=== PATIENT | female | born 1980 | race Caucasian/White ===

== ENCOUNTER → 2020-04-12 10:21 | Outpatient (CLI) | payer OTHER, SELFPAY ==
--- NOTE | ~2020-04-12 | XR_ITS ---
EXAMINATION: XR chest 2V DATE: 04/12/2020 10:35 INDICATION: Dyspnea, unspecified. TECHNIQUE: Frontal and lateral views of the chest were obtained. COMPARISON: None. FINDINGS: The chest demonstrates clear lungs without pneumonia, pleural effusion, or pneumothorax. Th e heart size is normal. IMPRESSION: 1. No acute cardiopulmonary disease. Reviewed, dictated and finalized at location B.
== END ==
PROVIDERS: PCP Family Medicine; Visit Provider Family Medicine
DX: R06.00 Dyspnea, unspecified (principal)
CPT/HCPCS: 71046

== ENCOUNTER 2020-04-21 10:38 | Outpatient (CLI) | payer OTHER, SELFPAY ==
--- NOTE | ~2020-04-21 | US_ITS ---
EXAMINATION: US pelvic complete w TV DATE: 04/21/2020 11:34 INDICATION: Other specified abnormal uterine and vaginal bleeding. TECHNIQUE: Multiple transabdominal and endovaginal sonographic images of the pelvis were obtained. COMPARISON: None. FINDINGS: The uterus measures 8.4 x 3.7 x 4.8 cm. The endometrial complex measures 7 mm. The right ov sade measures 2.6 x 2.1 x 2.6 cm. The left ovary measures 2.6 x 2.1 x 2.2 cm. There is normal vascular flow in the ovaries. There is no free fluid in the pelvis. IMPRESSION: 1. No sonographic correlate for the patient's symptoms. Reviewed, dictated and finalized at location A.
== END 2020-04-21 10:39 | disposition home or self-care (01) ==
LOC: ANHIMG 10:42
PROVIDERS: PCP Family Medicine; Visit Provider Family Medicine
DX: N93.8 Other specified abnormal uterine and vaginal bleeding (principal)
CPT/HCPCS: 76830; 76856

== ENCOUNTER 2022-01-29 11:26 | Outpatient (CLI) | payer BC, OTHER, SELFPAY ==
--- NOTE | ~2022-01-29 | MM_ITS ---
MM post biopsy invasive LT DATE: 01/29/2022 14:42 INDICATION: Post ultrasound-guided biopsy mammogram TECHNIQUE: ML and CC views of left breast following ultrasound-guided biopsy of 9:00 lesion COMPARISON: 01/29/2022 olq-freocqukff-lciwnx-biopsy diagnostic left mammogram images FINDINGS: A ribbon biopsy marker is present in the lower mid left breast from prior left breast biops y, present on the diagnostic mammogram performed prior to this ultrasound-guided biopsy. The biopsy marker did not successfully deploy at the 9:00 biopsy site today. IMPRESSION: Biopsy marker did not successfully deploy Reviewed, dictated and finalized at Location A. Reviewed, dictated and finalized at location A.
--- NOTE | ~2022-01-29 | US_ITS ---
EXAMINATION: US GUIDED NEEDLE BIOPSY DATE: 01/29/2022 15:35 CDT INDICATION: Irregular left breast inner 9:00 sonographic mass TECHNIQUE AND FINDINGS: The risks and potential benefits of the procedure were discussed with the patient, and written inform ed consent was obtained. Timeout procedure was performed. After sterile preparation of the left breas t, 1% lidocaine was utilized for local anesthesia. A 14G spring-loaded biopsy gun needle was advanced to the edge of the region of interest from an infe rior superior/inferior/medial/lateral/superolateral/superomedial/inferolateral/inferomedial approach utilizing sonographic guidance. A total of 2 tissue core samples were obtained through the lesion. T he lesion was subsequently no longer sonographically evident. An Inrad tissue marker clip was then pl aced at the biopsy site. Hemostasis was achieved. A sterile bandage was applied. The patient tolerated procedure well and there was no evidence of immediate complication. The patien t was given verbal instructions prior to departing from the department. A two view mammogram was perf ormed to document tissue marker clip placement. The tissue samples were submitted to surgical patholo gy for histologic analysis. IMPRESSION: 1. Successful ultrasound guided biopsy of inner left 9:00 breast mass with biopsy marker placement. Please refer to pathology report for histologic analysis. Reviewed, dictated and finalized at Location A. Reviewed, dictated and finalized at location A. IMPRESSION: 1. Successful ultrasound guided biopsy of inner left 9:00 breast mass with bio psy marker placement. Please refer to pathology report for histologic analysis.
--- NOTE | ~2022-01-29 | MMUS_ITS ---
EXAMINATION: MM diagnostic lamin BI w fina, US breast BI complete HISTORY: Lateral left breast lump TECHNIQUE: Bilateral full field and spot 3-D tomosynthesis images were performed and synthetic 2-D im ages were generated. CAD analysis was submitted and interpreted. High resolution bilateral complete b reast ultrasound including all 4 quadrants and subareolar areas was performed. COMPARISON: None BREAST PARENCHYMAL COMPOSITION: The breasts are heterogeneously dense, which may obscure small masses . FINDINGS: MAMMOGRAPHIC FINDINGS: Possible bilateral breast masses, including: Approximate 1.8 cm partially obscured mass is noted in the outer mid left breast. This corresponds to the area of clinical complaint of lateral breast lump. Possible 1 cm mass at mid to posterior depth in the upper mid right breast. The heterogeneously dense stroma may obscure additional masses. Bilateral complete breast ultrasound examination was performed. No architectural distortion, malignant calcification, skin thickening or retraction of either breast is evident. ULTRASOUND: Right breast: 12:00 2 cm from nipple: 9.7 x 5.6 x 12.1 mm sonolucency with through transmission posterior enhanceme nt consistent with simple cyst 7:00 2 cm from nipple: 5.2 x 7.4 x 5.6 mm antiparallel circumscribed sonolucency with through transmi ssion posterior enhancement, most consistent with cyst 9:00 6 cm from nipple: 8.5 x 6.3 x 11.1 mm bilobed simple cyst Left breast: 12:00 2 cm from nipple: 8.1 x 5.4 x 6.8 mm cyst 2:00 8 cm from nipple at area of clinical complaint of breast lump: Lobular septated 18.2 x 14.8 x 16 .5 mm cyst with through transmission posterior enhancement 9:00 2 cm from nipple: Irregular hypoechoic 8.1 x 4.9 x 4.1 mm mass. Due to the irregular margins, ul trasound-guided aspiration attempt and if necessary biopsy is recommended. IMPRESSION: 1. Irregular 8.1 x 4.9 x 4.1 mm hypoechoic lesion at left breast 9:00 2 cm from nipple 2. Attempted ultrasound-guided aspiration is recommended, with biopsy if necessary at left breast 9:0 0 lesion BI-RADS category 4, suspicious findings. Reviewed, dictated and finalized at location A. IMPRESSION: 1. Irregular 8.1 x 4.9 x 4.1 mm hypoechoic lesion at left breast 9:00 2 cm from nipple 2. Attempted ultrasound-guided aspiration is recommended, with biopsy if necess sade at left breast 9:00 lesion BI-RADS category 4, suspicious findings.
== END 2022-01-29 11:27 | disposition home or self-care (01) ==
PROVIDERS: PCP Family Medicine; Visit Provider Obstetrics & Gynecology
DX: N60.12 Diffuse cystic mastopathy of left breast (principal); R92.8 Other abnormal and inconclusive findings on diagnostic imaging of breast
CPT/HCPCS: 19083; 76641; 77062; 77066; 88305; A4648; G0279

== ENCOUNTER 2025-03-15 01:03 | Day surgery (SDC) | payer OTHER, SELFPAY ==
[2025-03-03 12:58] VITALS: BMI 24.0
--- NOTE | 2025-03-03 12:59 | PC.NURSE ---
Report to the Outpatient Waiting Room, entrance under the green pavilion located off [facility], at time _0700_ on date _[id number]_. Planned Procedure Time: _0900_.? Time changes happen often and if your time is changed the preop area will call you the afternoon before. - You and your visitor will be asked to self-screen and do not enter if you have any COVID symptoms. Please call surgeon if you need to reschedule. - A mask is optional within the hospital at this time. Patients may have clear liquids (water, carbonated beverages, clear teas, apple juice) until 3 hours prior to surgery with a maximum of 20 ounces. - No food from midnight until time of surgery and no smoking, or chewing tobacco (or any form of nicotine). No chewing gum, candy or mints. Take only the following medications with a SIP of water on the morning of surgery: ___None____ DO NOT STOP ANY OF YOUR OTHER PRESCRIPTION MEDICATIONS PRIOR TO SURGERY EXCEPT THE FOLLOWING Hold all vitamins and supplements for 3 days per anesthesiologist. Medications to discontinue per physician Date to take last dose Please no make-up, nail thai, hairspray, perfume, deodorant, or body powder the day of surgery.? No jewelry (including any body piercings) or valuables the day of surgery, leave them at home.? Please take a shower or bath the night before, or the morning of, surgery with an antibacterial soap.? Wear comfortable, loose fitting clothing.? - Jewelry must be removed prior to entering the operating room.? Rings and piercings that are not removed may be cut off. - The hospital will not accept responsibility for valuables.? - Please leave all valuables, including medications, at home the day of surgery. If you are going home after surgery, a licensed ems driver must drive you home.? - NO public transportation without another adult if you receive anesthesia. - We recommend that an adult stay with you for 24 hours following discharge. - We also recommend that you do not drive, make important decision, drink alcoholic beverages, or take any drugs that were not prescribed by your health care provider for at least 24 hours after your discharge time. Follow any additional instructions given to you from your surgeon. Telephone instructions given to __Tommi___and asked if any additional questions and then verbalized understanding. Patient advised to call surgeon office or pre surgery nurse liaison [phone] if any additional questions.
[2025-03-15] VITALS (8 sets, daily range): BP systolic 90–112; BP diastolic 46–55; PULSE 66–80; RESP 14–18; TEMP 36.5–36.6; O2SAT 94–100
--- OUTSIDE RECORDS SUMMARY | 2025-03-15 01:06 | XMS_ITS | Clinical Summary ---
Author Organization [address] lt Address [address] [place] [address] Care Team Providers Care Relief Captain Name Role Phone Pretty Ulloa NP Primary Care Provider [phone] Allergies Active Allergy Reactions Criticality Noted Date Comments Penicillins Other (See comments) Low 10/27/2018 Vaginal yeast infection Medications buPROPion XL (WELLBUTRIN XL) 150 mg 24 hr tabletIndicatio ns:Hot flashes due to menopause,Overw eight with body mass index (BMI) of 27 to 27.9 in adult Take 1 tablet (150 mg total) by mouth every morning 60 tablet 11/18/2023 Active Active Problems Problem Noted Date Diagnosed Date Hot flashes due to menopause 11/17/2023 Assessment & Plan (11/17/2023 11:42 AM CDT): Believes she is going through menopause Has been having hot flashes at night Discussed Wellbutrin to help with mood, weight and hot flashes Patient will let us know if she would like to proceed Elevated CA-125 11/17/2023 Assessment & Plan (11/17/2023 11:41 AM CDT): Previously elevated CA 125 Has had breast biopsy x2 Last pelvic US normal Repeat lab Overweight with body mass in dex (BMI) of 27 to 27.9 in adult 11/17/2023 Assessment & Plan (11/17/2023 11:43 AM CDT): Has been struggling to lose weight; works out 3-5 days/week; high protein diet Would like to lose another 15 pounds Labs ordered Encounters Date Type Department Care Team Description 02/16/2025 1:32 PM CDT - 02/16/2025 11:59 PM CDT Hospital Encounter [facility] [address] [place] [id number] Screening mammogram, encounter for Discharge Disposition: Discharge to home or self care from Last 3 Months Immunizations Immunization Administration Dates Next Due Influenza, Unspecified 07/03/2023(Deferr ed: Patient Refused),06/01/2022(Deferred: Patient Refused) Surgical History Surgery Date Site/Laterality Comments TONSILLECTOMY 09/01/1985 - 08/31/1986 Family History Relation Name Status Comments Mother Social History Tobacco Use Types Packs/Day Years Used Date Smoking Tobacco: Never Smokeless Tobacco: Never Tobacco Cessation:Counseling Given: Not Answered AUDIT-C Answer Date Recorded Q1: How often do you have a drink containing alc ohol? Monthly or less 11/17/2023 Q2: How many drinks containi ng alcohol do you have on a typical day when you are drinking? 1 or 2 11/17/2023 Q3: How often do you have si x or more drinks on one occasion? 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8 kg (156 lb) 02/16/2025 1:40 PM CDT Height 160 cm (5' 3) 02/16/2025 1:40 PM CDT Body Mass Index 27.63 02/16/2025 1:40 PM CDT Plan of Treatment Health Maintenance Due Date Last Done Comments Cervical Cancer Screening 1980 Hepatitis C Screening 1980 DTaP/Tdap/Td Vaccine (1 - Tdap) 1991 Hepatitis B Screening 1998 Regular Well Visit/Exam 18-64 1998 Depression Screening 11/16/2024 11/17/2023 Influenza Vaccine (#1) 2025 Breast Cancer Screening-Mammogram 02/16/2026 025 HPV Vaccines Aged Out No longer eligi ble based on patient's age to complete this topic Pneumococcal vaccine <65 Aged Out No longer eligible based on patient's age to complete this topic Varicella Vaccines Discontinued Procedures Procedure Name Priority Date/Time Associated Diagnosis Comments SCREENING MAMMOGRAM BILATERAL W SINGH Schedule Routine, Read Routine (OP Routine) 02/16/2025 1:48 PM CDT Screening mammogram, encounter for from Last 3 Months Results * Screening Mammogram Bilateral W Singh (02/16/2025 1:48 PM CDT) Anatomical Region Laterality Modality Breast Bilateral Mammography Impressions 02/18/2025 11:11 AM CDT Bilateral No evidence of malignancy in either breast. OVERALL BI-RADS FINAL ASSESSMENT: 2 - Benign RECOMMENDATION: Recommend bilateral annual screening mammography. Narrative 02/18/2025 11:11 AM CDT EXAMINATION: Screening Mammogram Bilateral W Singh: 02/16/2025 COMPARISON: Relevant prior outside studies available at the time of interpretation were reviewed. TECHNIQUE: Mammography was performed with 2D and digital breast tomosynthesis (DBT) images. CAD was utilized. BREAST PARENCHYMAL COMPOSITION: The breasts are heterogeneously dense, which may obscure small masses. FINDINGS: There are multiple similar appearing round and oval circumscribed masses in both breasts. These have no suspiciously changed and are considered to be benign based on their morphology, multiplicity, and bilaterality. Some of these masses were characterized as benign cysts on prior outside ultrasound. There is a left breast biopsy marker clip. There is no definite new suspicious finding in either breast on mammogram. us Self Screening Mammogram IMG MAMMO PROCEDURES Fi nal Result from Last 3 Months Insurance ACCESS [facility] [place] HMO Care Teams Relief Captain Relationship Specialty Start Date End Date Pretty Ulloa NP PCP - General Family Medicine 11/17/23
--- OUTSIDE RECORDS SUMMARY | 2025-03-15 01:06 | XMS_ITS | Referral Summary ---
Author Organization [facility] [place] [address] lt Address [address] [place] [address] Care Team Providers Care Stereoptic Projection Topographer Name Role Phone Pretty Ulloa NP Primary Care Provider [phone] Encounters Date Type Department Care Team Description 02/16/2025 1:32 PM CDT - 02/16/2025 11:59 PM CDT Hospital Encounter [facility] [address] [place] [address] Screening mammogram, encounter for Discharge Disposition: Discharge to home or self care from Last 3 Months Allergies Active Allergy Reactions Criticality Noted Date [...] to lose another 15 pounds Labs ordered Immunizations Immunization Administration Dates Next Due Influenza, Unspecified 07/03/2023(Deferr ed: Patient Refused),06/01/2022(Deferred: Patient Refused) Social History Tobacco Use Types Packs/Day Years [...] on file Legal Sex Female 5:57 PM [employer] Gender Identity Female 02/15/2025 1:48 PM CDT Sexual Orientation Straight 02/15/2025 1: 48 PM CDT Last Filed Vital Signs Vital Sign Reading [...] 02/16/2025 1:40 PM CDT Plan of Treatment Not on file Procedures Procedure Name Priority Date/Time Associated Diagnosis [...] nal Result from Last 3 Months Insurance [employer] [facility]ESS [facility] HMO Care Teams Stereoptic Projection Topographer Relationship Specialty Start Date End Date Pretty Ulloa NP PCP - General Family Medicine 11/17/23
--- OUTSIDE RECORDS SUMMARY | 2025-03-15 01:06 | XMS_ITS | Data Portability ---
Author Organization [facility] Address [address] [place] [address] Assessment Encounter Date Assessment Date Assessment LastModified by Organization Details LastModified Time 10/26/2024 10/26/2024 I spent 15 minutes of iagw-jb-adur counselling and care coordination time with the patient. This includes reviewing medical records (medical, surgical, family and social history); updating medication and allergy information in the electronic health record; and ordering labs, medications, and education materials to continue patient care. Not available 10/26/2024 18:11:11 11/25/2024 11/25/2024 I spent 15 minutes of vgmi-qr-ojla counselling and care coordination time with the patient. This includes reviewing medical records (medical, surgical, family and social history); updating medication and allergy information in the electronic health record; and ordering labs, medications, and education materials to continue patient care. [email or web address] Not available 11/25/2024 15:45:57 12/22/2024 12/22/2024 I spent 15 minutes of rxbn-rv-qgqi counselling and care coordination time with the patient. This includes reviewing medical records (medical, surgical, family and social history); updating medication and allergy information in the electronic health record; and ordering labs, medications, and education materials to continue patient care. [email or web address] Not available 12/22/2024 15:21:47 01/11/2025 01/11/2025 I spent 15 minutes of rycs-ws-hvoa counselling and care coordination time with the patient. This includes reviewing medical records (medical, surgical, family and social history); updating medication and allergy information in the electronic health record; and ordering labs, medications, and education materials to continue patient care. Not available 01/11/2025 17:16:51 02/15/2025 02/15/2025 I spent 15 minutes of eebr-mk-olup counselling and care coordination time with the patient. This includes reviewing medical records (medical, surgical, family and social history); updating medication and allergy information in the electronic health record; and ordering labs, medications, and education materials to continue patient care. [email or web address] Not available 02/15/2025 16:26:44 Plan of Treatment Reminders Order Date Submit Date Provider Last Modified By Organization Details Last Modified Time Details Appointments [id number] 2024 12:00P M Maria M Marino NP Not available Not available Not available Lab hormone panel, serum or plasma 2024 025 [facility], [address] [place] [address], [id number], 11/30/2024 00:08:21 Referral None recorded. Procedures None recorded. Surgeries None recorded. Imaging None recorded. Medication Orders Zepbound 12.5 mg/0.5 mL subcutane ous pen injector 2024 025 [id number], [facility] [place], [id number], 02/15/2025 17:56:28 Zepbound 12.5 mg/0.5 mL subcutane ous pen injector 2024 025 [facility] [id number] In [facility], [facility] [address], [place], [place], [id number], 02/15/2025 17:56:27 Zepbound 10 mg/0.5 mL subcutane ous pen injector 2024 025 [facility] [id number] In [facility], [facility] [place], [id number], 01/20/2025 10:07:27 estradiol 0.01% (0.1 mg/gram) vaginal cream 2024 025 [email or web address] [facility] [id number] In [facility], [facility] [address], [id number], 01/12/2025 15:09:40 estradiol 0.05 mg/24 hr semiweekl y transderm al patch 2024 025 [facility] [id number] In [facility], [facility] [place], [id number], 01/11/2025 17:31:21 Prometriu m 100 mg capsule 2024 025 [email or web address] [facility] [address] In [facility], [facility] [place], [id number], 01/12/2025 15:09:39 Zepbound 10 mg/0.5 mL subcutane ous pen injector 2024 025 [email or web address] [facility] [id number] In [facility], [facility] [place], [id number], 01/20/2025 10:07:22 Zepbound 10 mg/0.5 mL subcutane ous pen injector 2024 025 [email or web address] [facility] [id number] In [facility], [facility] [place] [address] [place], [id number], 01/20/2025 10:07:22 estradiol 0.01% (0.1 mg/gram) vaginal cream 2024 025 [facility] [address] In [facility], [facility] [place], [id number], 11/25/2024 15:52:51 Prometriu m 100 mg capsule 2024 025 [facility] [address] In [facility], [facility] [place] [address] [place], [id number], 11/25/2024 15:52:51 estradiol 0.05 mg/24 hr semiweekl y transderm al patch 2024 025 [facility] [address] In [facility], [facility] [address], [place], [place], [id number], 11/25/2024 15:52:51 Zepbound 10 mg/0.5 mL subcutane ous pen injector 2024 025 [email or web address] [facility] [address] In [facility], [facility] [address], [place], [place], [id number], 01/20/2025 10:07:22 Patient Targets Encounter Date Encounter Id Patient Goals Patient Target Last Modified By Organization Details Last Modified Time 10/26/2024 [id number] bmi <25 [email or web address] Not available 2024 18:11:17 11/25/2024 [id number] continue weight loss and increase libido [email or web address] Not available 11/25/2024 16:00:22 12/22/2024 [id number] goal weight 135lbs Not available 12/22/2024 15:21:50 01/11/2025 [id number] goal weight 135lbs, continue mp sxs control Not available 01/11/2025 17:42:57 02/15/2025 [id number] goal weight 135lbs [email or web address] Not available 02/15/2025 16:27:11 Patient Instructions Encounter Date Encounter Id Patient Instructions Last Modified By Organization Details Last Modified Time 10/26/2024 [id number] Any requested follow-up visits are listed below in the Plan of Care section. Go directly to the [facility] scheduler conveyor at [email or web address] to book a time. [email or web address] Not available 10/26/2024 15:12:56 It was a pleasur e to meet with you today! We discussed your health concerns related to weight management and menopause. --------- Your Care Plan --------- Together, we decided that you would: - Increase your dosage of Zepbound to 10 milligrams once weekly subcutaneously. This is to help manage your increasing hunger noises and assist in your weight loss journey. - Continue to monitor your weight and BMI. You have made progress, moving from a weight of 159 pounds with a BMI of 28.2 to a current weight of 157 pounds with a BMI of 27.8. - Schedule a follow-up appointment on November 16. This appointment will include a menopausal follow-up. Tips for Taking Tirzepatide Note: MOUNJARO and ZEPBOUND are brand names for TIRZEPATIDE -You can take Tirzepatide(Mounjar o/Zepbound) with or without food -If you need to change the day of the week, you may do so as long as your last dose was given 2 or more days before -If you take too much tirzepatide, you may have severe nausea, severe vomiting, and severe low blood sugar. This is why it is critical to follow the dosing regimen prescribed by your [facility] Weight Loss Expert. What to Do if You Miss a Dose -If you miss a dose, and the next scheduled dose is MORE than 2 days away (48 hours), take the missed dose as soon as possible -If you miss a dose, and the next scheduled dose is LESS than 2 days away (48 hours), do not administer the dose. Take your next dose on the regularly scheduled day -If you miss your tirzepatide dose for more than 2 weeks, take the next dose on the regularly scheduled day or message your [facility] Expert to talk about how to restart your treatment The most common side effects may include: nausea, diarrhea, constipation, headache, abdominal pain, tiredness, upset stomach, dizziness, feeling bloated, belching, gas, stomach flu, heartburn. The most common side effect is nausea. It tends to go away on its own, but here are some tips to help you manage nausea associated with this medication: -Eat bland, low-fat foods, like crackers, toast, and rice -Eat foods that contain water, like soups and gelatin -Avoid lying down after you eat -Go outdoors for fresh air -Eat more slowly Important Safety Information Tirzepatide/Mounjar o/Zepbound may cause serious side effects, including: -Inflammation of your pancreas (pancreatitis). Stop using this medication and call your [facility] healthcare provider right away if you have severe pain in your stomach area (abdomen) that will not go away, with or without vomiting. You may feel the pain from your abdomen to your back. -Gallbladder problems. May cause gallbladder problems, including gallstones. Some gallstones may need surgery. Call your [facility] healthcare provider if you have symptoms, such as pain in your upper stomach (abdomen), fever, yellowing of the skin or eyes (jaundice), or caitlin-colored stools. -Increased risk of low blood sugar (hypoglycemia) in patients with type 2 diabetes, especially those who also take medicines for type 2 diabetes such as sulfonylureas or insulin. This can be both a serious and common side effect. Talk to your [facility] healthcare provider about how to recognize and treat low blood sugar and check your blood sugar before you start and while you take this medication. Signs and symptoms of low blood sugar may include dizziness or light-headedness, blurred vision, anxiety, irritability or mood changes, sweating, slurred speech, hunger, confusion or drowsiness, shakiness, weakness, headache, fast heartbeat, or feeling jittery. -Kidney problems (kidney failure). In people who have kidney problems, diarrhea, nausea, and vomiting may cause a loss of fluids (dehydration) which may cause kidney problems to get worse. It is important for you to drink fluids to help reduce your chance of dehydration. -Serious allergic reactions. Stop using this medication and get medical help right away, if you have any symptoms of a serious allergic reaction, including swelling of your face, lips, tongue, or throat; problems breathing or swallowing; severe rash or itching; fainting or feeling dizzy; or very rapid heartbeat. -Change in vision in patients with type 2 diabetes. Tell your [facility] healthcare provider if you have changes in vision during treatment while on this medication. -Increased heart rate. This medication can increase your heart rate while you are at rest. Tell your [facility] healthcare provider if you feel your heart racing or pounding in your chest and it lasts for several minutes. -Depression or thoughts of suicide. You should pay attention to any mental changes, especially sudden changes in your mood, behaviors, thoughts, or feelings. Call your [facility] healthcare provider right away if you have any mental changes that are new, worse or worry you. If you EVER have any thoughts of self harm or thoughts of harming someone else, please go to the closest emergency department or call 911. You can also call / text [phone] [email or web address] Please note that you did not need any hormone replacement refills today. Please carefully review the care plan we decided upon, specific information regarding your medication, and important details about your treatment detailed below. Thank you for trusting us with your care! NPBates [email or web address] Not available 10/26/2024 18:11:29 11/25/2024 [id number] Any requested follow-up visits are listed below in the Plan of Care section. Go directly to the [facility] scheduler conveyor at [email or web address] to book a time. Not available 11/25/2024 15:35:14 It was a pleasur e to meet with you today! We discussed your health concerns related to menopause, including low libido and hair loss. --------- Your Care Plan --------- Together, we decided that you would: - Increase your estradiol dosage from 0.0375 mg to 0.05 mg. - Continue taking progesterone at 100 mg. - Start using vaginal estrogen cream, applying 1 gram nightly for a week, then 1 gram twice a week. If libido does not improve after 2-3 weeks, increase to 2 grams twice a week at bedtime. - [facility]. - Schedule an appointment with a [facility]-licensed provider in your state to discuss the possibility of testosterone therapy. - Continue using Nizoral shampoo, lathering it in your hair for 5 minutes before rinsing it out twice a week. - Consider taking a multivitamin to help with hair loss. - Consider using a topical hair growth serum from [employer], which contains ketoconazole, minoxidil, latanoprost, and finasteride. The cost is $69 for a 30-day supply. - Follow-up appointment scheduled for December 22 at 2:15 PM Central Time to discuss your progress with Zepbound and other treatments. Zepbound (tirzepatide) is FDA approved for weight loss. It is an injectable medication meant to be used in addition to a reduced calorie diet and increased physical activity. [place] [id number] to enroll for a digital starter kit to help them get started on Zepbound. The Digital Starter Kit provides tips for starting Zepbound, what to expect, reminder options, and additional resources. Today we reviewed options for treating common symptoms of menopause. These options include hormonal medications, non hormonal medications, integrative therapies and lifestyle modifications. Menopause symptoms vary from woman to woman. Some women get no symptoms, but others have many. Intensity and duration also vary and can last on average 5-10 years. HRT may help with many menopausal symptoms. It is FDA approved for the treatment of hot flashes, vaginal symptoms, osteoporosis, and for those in early or premature menopause. HRT is associated with relief of symptoms and improvement in bone health. When started close to the age of menopause, HRT reduces cardiovascular risk and has potential benefits for cognitive health. Here are the latest recommendations from the Menopause Society: https://menopause.o rg/patient-educatio n/menopause-topics/ hormone-therapy Hormone therapy most often involves the combination of estrogen and progestogen. As with any drug there are some potential risks associated with hormone therapy. There are concerns of associated health risks with HRT including risks related to breast cancer, uterine cancer, gallbladder disease, and dementia. Many of these concerns are related to older types of hormones that are no longer recommended today and some of these concerns differ depending on the component of hormones (i.e., estrogen vs progestogen) and the mode of delivery. Some studies have suggested that some types of HRT may increase the risk of heart attack, stroke, and blood clots. If you develop chest pain, difficulty breathing, or symptoms suggestive of a stroke please seek care immediately. Today we reviewed your personal history including specific risks and benefits of hormone therapy for you. Based on this shared decision making, we recommend HRT to you as a reasonable and helpful therapy. If you have additional questions related to health risks associated with HRT, please discuss with your clinician. Please know that HRT requires fine-tuning and an individualized approach. We ll plan to adjust your therapy if needed to address your symptoms. We will meet in 4-6 weeks to check in about your new regimen. Please reach out if you need to meet sooner. Please carefully review the care plan we have decided upon, specific information regarding your medication, and important details about your treatment detailed below. Thank you for trusting us with your care! NPBates Not available 11/25/2024 16:05:07 12/22/2024 [id number] Any requested follow-up visits are listed below in the Plan of Care section. Go directly to the [employer] scheduler conveyor at [email or web address] to book a time. [email or web address] Not available 12/22/2024 15:20:15 It was a pleasur e to meet with you today! We discussed your health concerns related to weight management and perimenopause. Your Care Plan Together, we decided that you would: - Continue taking Zepbound 10 mg as prescribed. A refill has been sent to your [facility] on [address] - Maintain your current estrogen dose of 0.5 mg for perimenopause. We will reassess this dosage after three months to determine if any adjustments are needed. - Aim for a goal weight of 135 to 145 pounds. - Complete the questionnaire before your visit in March to help us evaluate your progress and make any necessary adjustments to your treatment plan. We have scheduled a follow-up appointment on February 11 at 2:15 PM to monitor your progress. Zepbound (tirzepatide) is FDA approved for weight loss. It is an injectable medication meant to be used in addition to a reduced calorie diet and increased physical [place] [id number] to enroll for a digital starter kit to help them get started on Zepbound. The Digital Starter Kit provides tips for starting Zepbound, what to expect, reminder options, and additional resources. Please carefully review the care plan we have agreed upon above, which includes specific information about your medication, weight management, and other important details about your overall care. Thank you for trusting us with your care! NPBates Not available 12/22/2024 15:28:36 01/11/2025 [id number] Any requested follow-up visits are listed below in the Plan of Care section. Go directly to the [facility] scheduler conveyor at [email or web address] to book a time. [email or web address] Not available 01/11/2025 17:15:37 It was a pleasur e to meet with you today! We discussed your health concerns related to weight management. Your Care Plan Together, we decided that you would: - Continue your current medication, Zepbound at the 10 mg dosage. - Monitor your weight loss, aiming for a gradual reduction of 1 to 3 pounds per month. - Follow up with monthly appointments to monitor your progress. Zepbound (tirzepatide) is FDA approved for weight loss. It is an injectable medication meant to be used in addition to a reduced calorie diet and increased physical [place]. [place] [phone] to enroll for a digital starter kit to help them get started on Zepbound. The Digital Starter Kit provides tips for starting Zepbound, what to expect, reminder options, and additional resources. Please carefully review the care plan we have decided upon above, including specific information about your medication, and any other important details about your overall care. Today we reviewed options for treating common symptoms of menopause. These options include hormonal medications, non hormonal medications, integrative therapies and lifestyle modifications. Menopause symptoms vary from woman to woman. Some women get no symptoms, but others have many. Intensity and duration also vary and can last on average 5-10 years. HRT may help with many menopausal symptoms. It is FDA approved for the treatment of hot flashes, vaginal symptoms, osteoporosis, and for those in early or premature menopause. HRT is associated with relief of symptoms and improvement in bone health. When started close to the age of menopause, HRT reduces cardiovascular risk and has potential benefits for cognitive health. Here are the latest recommendations from the Menopause Society: https://menopause.o rg/patient-educatio n/menopause-topics/ hormone-therapy Hormone therapy most often involves the combination of estrogen and progestogen. As with any drug there are some potential risks associated with hormone therapy. There are concerns of associated health risks with HRT including risks related to breast cancer, uterine cancer, gallbladder disease, and dementia. Many of these concerns are related to older types of hormones that are no longer recommended today and some of these concerns differ depending on the component of hormones (i.e., estrogen vs progestogen) and the mode of delivery. Some studies have suggested that some types of HRT may increase the risk of heart attack, stroke, and blood clots. If you develop chest pain, difficulty breathing, or symptoms suggestive of a stroke please seek care immediately. Today we reviewed your personal history including specific risks and benefits of hormone therapy for you. Based on this shared decision making, we recommend HRT to you as a reasonable and helpful therapy. If you have additional questions related to health risks associated with HRT, please discuss with your clinician. Please know that HRT requires fine-tuning and an individualized approach. We ll plan to adjust your therapy if needed to address your symptoms. We will meet in 4-6 weeks to check in about your new regimen. Please reach out if you need to meet sooner. Thank you for trusting us with your care! NPBates [email or web address] Not available 01/11/2025 17:43:50 02/15/2025 [id number] Any requested follow-up visits are listed below in the Plan of Care section. Go directly to the [facility] scheduler conveyor at [email or web address] to book a time. [email or web address] Not available 02/15/2025 16:24:42 It was a pleasur e to meet with you today! We discussed your health concerns related to weight management. Your Care Plan Together, we decided that you would: - Continue taking Zepbound at the current dosage of 10 mg. - Fill the current prescription for Zepbound today. - Fill the second prescription for Zepbound on March 08. - Continue following the weight management strategies previously discussed. - Send a message after filling the second prescription in March to report your current weight and any side effects. - Follow up on April 05, which is 7 weeks from today. Tips for Taking Tirzepatide Note: MOUNJARO and ZEPBOUND are brand names for TIRZEPATIDE -You can take Tirzepatide(Mounjar o/Zepbound) with or without food -If you need to change the day of the week, you may do so as long as your last dose was given 2 or more days before -If you take too much tirzepatide, you may have severe nausea, severe vomiting, and severe low blood sugar. This is why it is critical to follow the dosing regimen prescribed by [facility]. What to Do if You Miss a Dose -If you miss a dose, and the next scheduled dose is MORE than 2 days away (48 hours), take the missed dose as soon as possible -If you miss a dose, and the next scheduled dose is LESS than 2 days away (48 hours), do not administer the dose. Take your next dose on the regularly scheduled day -If you miss your tirzepatide dose for more than 2 weeks, take the next dose on the regularly scheduled day or message your [facility] to talk about how to restart your treatment The most common side effects may include: nausea, diarrhea, constipation, headache, abdominal pain, tiredness, upset stomach, dizziness, feeling bloated, belching, gas, stomach flu, heartburn. The most common side effect is nausea. It tends to go away on its own, but here are some tips to help you manage nausea associated with this medication: -Eat bland, low-fat foods, like crackers, toast, and rice -Eat foods that contain water, like soups and gelatin -Avoid lying down after you eat -Go outdoors for fresh air -Eat more slowly Important Safety Information Tirzepatide/Mounjar o/Zepbound may cause serious side effects, including: -Inflammation of your pancreas (pancreatitis). Stop using this medication and call your [facility] healthcare provider right away if you have severe pain in your stomach area (abdomen) that will not go away, with or without vomiting. You may feel the pain from your abdomen to your back. -Gallbladder problems. May cause gallbladder problems, including gallstones. Some gallstones may need surgery. Call your [facility] healthcare provider if you have symptoms, such as pain in your upper stomach (abdomen), fever, yellowing of the skin or eyes (jaundice), or caitlin-colored stools. -Increased risk of low blood sugar (hypoglycemia) in patients with type 2 diabetes, especially those who also take medicines for type 2 diabetes such as sulfonylureas or insulin. This can be both a serious and common side effect. Talk to your [facility] provider about how to recognize and treat low blood sugar and check your blood sugar before you start and while you take this medication. Signs and symptoms of low blood sugar may include dizziness or light-headedness, blurred vision, anxiety, irritability or mood changes, sweating, slurred speech, hunger, confusion or drowsiness, shakiness, weakness, headache, fast heartbeat, or feeling jittery. -Kidney problems (kidney failure). In people who have kidney problems, diarrhea, nausea, and vomiting may cause a loss of fluids (dehydration) which may cause kidney problems to get worse. It is important for you to drink fluids to help reduce your chance of dehydration. -Serious allergic reactions. Stop using this medication and get medical help right away, if you have any symptoms of a serious allergic reaction, including swelling of your face, lips, tongue, or throat; problems breathing or swallowing; severe rash or itching; fainting or feeling dizzy; or very rapid heartbeat. -Change in vision in patients with type 2 diabetes. Tell your [facility] provider if you have changes in vision during treatment while on this medication. -Increased heart rate. This medication can increase your heart rate while you are at rest. Tell your [facility] provider if you feel your heart racing or pounding in your chest and it lasts for several minutes. -Depression or thoughts of suicide. You should pay attention to any mental changes, especially sudden changes in your mood, behaviors, thoughts, or feelings. Call your [facility] provider right away if you have any mental changes that are new, worse or worry you. If you EVER have any thoughts of self harm or thoughts of harming someone else, please go to the closest emergency department or call 911. You can also call / text echoecho [email or web address]/?utm_source=mayte da silva&utm_medium=Health Data Minder &utm_campaign=[email or web address] x Please carefully review the care plan we have decided upon above, including specific information about your medication, and any other important details about your overall care. Thank you for trusting us with your care! NPBates [email or web address] Not available 02/15/2025 17:56:01 Reason for Referral None Reported. Results Created Date Observation Date Name Description Value Unit Range Abnormal Flag Note LastModifiedBy Organization Detail LastModifiedTime 11/27/19 25 11/27/2024 FSH+T ESTT+ LH+NJ OG+ES TROGE N testosterone 8 NG/dL 4-50 normal Not Available [facility] ([facility]) [address] [place], [address], 11/30/2024 00:08:21 11/27/1911/27/2024 FSH+T ESTT+ LH+NJ OG+ES TROGE N LH 15.8 mIU/m L normal Adult Femal e Range Folli cular phase 2.4 - 12.6 Ovula tion phase 14.0 - 95.6 Lutea l phase 1.0 - 11.4 Postm enopa usal 7.7 - 58.5 Not Available [facility] ([facility]) [address] [place], [address], 11/30/2024 00:08:21 11/27/1911/27/2024 FSH+T ESTT+ LH+NJ OG+ES TROGE N FSH 5.2 mIU/m L Adult Femal e Range Folli cular phase 3.5 - 12.5 Ovula tion phase 4.7 - 21.5 Lutea l phase 1.7 - 7.7 Postm enopa usal 25.8 - 134.8 Not Available [facility] ([facility]) [address] [place], [address], 11/30/2024 00:08:21 11/27/1911/27/2024 FSH+T ESTT+ LH+NJ OG+ES TROGE N progesterone 2.5 NG/mL normal Folli cular phase 0.1 - 0.9 Lutea l phase 1.8 - 23.9 Ovula tion phase 0.1 - 12.0 Pregn ant First trime ster 11.0 - 44.3 Secon d trime ster 25.4 - 83.3 Third trime ster 58.7 - 214.0 Postm enopa usal 0.0 - 0.1 Not Available [facility] ([facility]) [address] [place], [address], 11/30/2024 00:08:21 11/27/1911/29/2024 FSH+T ESTT+ LH+NJ OG+ES TROGE N estrogens, total 141 pg/mL normal Prepu nicolle l < 40 Femal e Cycle : 1-10 Days 16 - 328 11-20 Days 34 - 501 21-30 Days 48 - 350 Post- Menop ausal 40 - 244 Not Available [facility] ([facility]) [address], [place], [address], 11/30/2024 00:08:21 Result Notes None recorded. Problems Name Problem SNOMED Code Status Onset Date Resolution Date Notes Provider Name and Address Organization Details Recorded Time Menopausal symptom 21127465 Active 2023 Maria M [place] [address] [place], [address], [employer] 5 16:02:39 Fatigue 47500522 Active 2023 Maria M Mar[place] [address] [place], [address], [facility] 4 14:02:07 Obesity 676558084 Active 2023 [place], [address], [employer] [facility] 5 10:08:13 Insomnia 085792522 Active 2023 Maria M Marino [place] [address] [place], [address], [facility] 4 14:02:24 Cognitive function finding 745792268 Active 2023 [place], [address], [facility] 4 14:02:55 Partner had vasectomy 114645650 Active 2023 [place], [address], [facility] 4 14:06:40 Nausea 898849493 Active 2024 [place], [address], [facility] 5 17:22:29 Hyperlipidemia 56391465 Active 2024 Maria M Marino CORNELIA [address] [address], [facility] 5 13:40:32 Reduced libido 6613885 Active 2024 Maria M MarinoCORNELIA Chema Burnham [place] [address], [facility] 5 15:52:15 Problem Notes None recorded. Procedures Surgical History Date Name Laterality Status Provider Name and Address Organization Details Recorded Time 2 Date of Last Mammogram completed Maria M Marino CORNELIA Burnham [place] [address], [facility] 2024 15:40:37 2 Date of Last Pap Smear completed Maria M MarinoCORNELIA Chema Burnham [place] [address], [facility] 2024 15:40:37 Removal of tonsils completed Maria M MarinoCORNELIA Chema [place] [address], [facility] 08/12/2024 14:23:36 Imaging Results None recorded. Procedure Notes None recorded. Medical Equipment None Reported. Allergies Allergen ID Allergen Name Allergen Category Reaction Reaction Severity Criticality Documentation Date Start Date Code Code System Note Provider Name and Address Organization Details Recorded Time 448053 Product containin g penicilli n (product) medicatio n other Not available low 09/08/20242018 32947 8001 SNOMED Vagin al yeast infec tion Not Available codi - External Data Service - prod 14:47:16 Medications Name Sig Start Date Stop Date Status Note LastModified by Organization Details LastModified Time benzonata te 200 mg capsule 09/06 completed Not Available Not Available Not Available prednison e 20 mg tablet 09/06 completed Not Available Not Available Not Available acyclovir 400 mg tablet TAKE 1 TABLET BY MOUTH TWICE A DAY 10/26 completed Not Available Not Available Not Available estradiol 0.05 mg/24 hr semiweekl y transderm al patch Apply 1 patch twice a week by transder mal route for 90 days. 2024 active Not Available Not Available Not Avai lable ondansetr on 8 mg disintegr ating tablet PLEASE SEE ATTACHED FOR DETAILED DIRECTIO NS 09/06 completed Not Available Not Available Not Available doxycycli ne monohydra te 100 mg capsule 09/06 completed Not Available Not Available Not Available cephalexi n 500 mg capsule TAKE ONE CAPSULE BY MOUTH TWICE DAILY FOR 10 DAYS 09/06 completed Not Available Not Available Not Available estradiol 0.01% (0.1 mg/gram) vaginal cream Insert 1 g twice a week by vaginal route at bedtime for 90 days. 2024 active Not Available Not Available Not Avai lable estradiol 0.0375 mg/24 hr semiweekl y transderm al patch APPLY 1 PATCH TWICE A WEEK 12/22 completed Not Available Not Available Not Available ondansetr on 4 mg disintegr ating tablet DISSOLVE 1 TABLET ON THE TONGUE EVERY 6-8 HOURS DIRECTED FOR 10 DAYS. active Not Available Not Available No t Available progester one micronize d 100 mg capsule TAKE 1 CAPSULE BY MOUTH EVERY DAY AT BEDTIME FOR 90 DAYS 2024 active Not Available Not Available Not Avai lable bupropion HCl XL 150 mg 24 hr tablet, extended release 09/06 completed Not Available Not Available Not Available Wegovy 1.7 mg/0.75 mL subcutane ous pen injector INJECT 1.7 MG SUBCUTAN EOUSLY EVERY WEEK FOR WEIGHT LOSS 09/06 completed Not Available Not Available Not Available Wegovy 1 mg/0.5 mL subcutane ous pen injector PLEASE SEE ATTACHED FOR DETAILED DIRECTIO NS 09/06 completed Not Available Not Available Not Available Wegovy 0.25 mg/0.5 mL subcutane ous pen injector INJECT 0.25 MG SUBCUTAN EOUSLY EVERY WEEK FOR WEIGHT LOSS. 09/06 completed Not Available Not Available Not Available Wegovy 0.5 mg/0.5 mL subcutane ous pen injector INJECT 0.5 MG SUBCUTAN EOUSLY EVERY WEEK FOR WEIGHT LOSS. 09/06 completed Not Available Not Available Not Available Zepbound 10 mg/0.5 mL subcutane ous pen injector Inject 10 mg every week by subcutan eous route as directed for 63 days. 01/20 completed Not Available Not Available Not Available Zepbound 5 mg/0.5 mL subcutane ous pen injector Inject 5 mg every week by subcutan eous route as directed . 09/29 [facility] [id number] Not Available Not Available Not Available Zepbound 2.5 mg/0.5 mL subcutane ous pen injector INJECT ONE PEN OF 2.5MG SUBCUTAN EOUSLY ONCE WEEKLY 09/06 completed Not Available Not Available Not Available Zepbound 12.5 mg/0.5 mL subcutane ous pen injector INJECT 12.5 MG EVERY WEEK BY SUBCUTAN EOUS ROUTE DIRECTED FOR 21 DAYS. active Not Available Not Available No t Available Zepbound 7.5 mg/0.5 mL subcutane ous pen injector INJECT 7.5 MG EVERY WEEK BY SUBCUTAN EOUS ROUTE DIRECTED FOR 21 DAYS. 11/25 completed Not Available Not Available Not Available Zepbound 09/06 completed through other clinic started in 08/2024 Not Available Not Available Not Available Vitals Date Recorded Body height Body mass index (BMI) Body weight Provider Name and Address Organization Details Last Updated DateTime 10/26/2024 160.02 cm 27.8 kg/m2 257[address] [place] [address] [place], [address], [facility] 10/26/2024 15:13:51 Date Recorded Body height Body mass index (BMI) Body weight Provider Name and Address Organization Details Last Updated DateTime 11/25/2024 160.02 cm 27.3 kg/m2 87375.22 [place] [address] [place], [address], [facility] 11/25/2024 15:46:17 Date Recorded Body height Body mass index (BMI) Body weight Provider Name and Address Organization Details Last Updated DateTime 12/22/2024 160.02 cm 26.7 kg/m2 11239.45 g Maria M Marino, CORNELIA [address] [place], [address], [facility] 12/22/2024 15:21:02 Date Recorded Body height Body mass index (BMI) Body weight Provider Name and Address Organization Details Last Updated DateTime 01/11/2025 160.02 cm 26.4 kg/m2 438[address].26 [place] [address] [place], [address], [facility] 01/11/2025 17:16:15 Date Recorded Body height Body mass index (BMI) Body weight Provider Name and Address Organization Details Last Updated DateTime 02/15/2025 160.02 cm 26.6 kg/m2 63795.86 g Maria M Marino, CORNELIA [address] [place], [address], [facility] 02/15/2025 16:26:51 Social History None recorded. Functional Status Question Answer Note LastModified by Ali ion Details LastModified Time What is your level of alcohol consumption? None ETOH Reported drinks: Glasses of wine: 0, Cans of beer or cider: 0, Shots of liquor: 0, Information not available 08/12/2024 Mental Status None recorded. Family History Relationship Description Onset Age of this Age Resolved Age Notes LastModified by Organization Details LastModified Time Mother Osteoporosis [email or web address] Not avail able 08/12/2024 14:00:50 Medical History Condition Response Pancreatitis N Allergies (Food, seasonal, environmental ) N Other N Colon Cancer N Drug/Latex Allergies/Reactions N Breast Cancer N Blood Transfusion N Lung Disease N Dermatologic Disorders N Defects or Inherited Disease N Breast Problem N Gestational Diabetes N Uterine Cancer N Hematologic disorders N Anesthesia Complications N History of STI N Deep Vein Thrombosis N Polycystic ovary syndrome N Anxiety Disorder N Autoimmune disease N Arthritis N Polyps N Infertility N Cervical Cancer N History of abnormal pap N Acid Reflux (GERD) N Cancer N Varicosities N Stroke N Neurologic/Epilepsy N Endometriosis N Factor 5 Leiden Deficiency N High Cholesterol N Liver Disease N Headaches N Fibromyalgia N Kidney Disease N Heart Problems N Gallbladder Disease N Migraines N Thyroid Problems N Kidney or Bladder Problems N GI Problems N Acne N Eating Disorder N Anemia N Art (IVF or FET) N Psychiatric Illness N Ovarian Cancer N Lymphoma Cancer N Diabetes N Pulmonary (TB, Asthma) N Hepatitis/Liver Disease N Eczema N Abuse/Domestic Violence N Heart Attack N Trauma/Violence N Seizures N Protein C and/or S Deficiency N Depression/ depression N Heart Disease N Pulmonary Embolism N Pre-Eclampsia N Hypertension N Osteoporosis N Thrombophilias N Gynecological History Statement/Question Response Abnormal Pap N Date of Last Mammogram 01/28/2022 Date of LMP 06/26/2022 Menses Monthly Y HPV Vaccine N Date of Last Pap Smear 01/28/2022 Current Control Method None Hormone Replacement Therapy Yes Obstetrics History GPAL:G 2 P 0 0 0 2 Type Value Living 2 Total 2 Past Encounters Encounter ID Performer Location Encounter Start Date Encounter Closed Date Diagnosis/Indication Diagnosis SNOMED-CT Code Diagnosis ICD10 Code Diagnosis Note [id number] Maria M Marino NP Main Office [address] [place] [address] 08/12/2024 13:06:43 08/13/2024 08:12:36 Menopausal symptom 33434295 N95.1 - Symptoms include vasomotor instabilit y, irregular periods, and increased cortisol levels.- Educated patient on the phases of menopause and the importance of estrogen replacemen t to manage symptoms and reduce cardiovasc ular and cancer risks.- Ordered labs including thyroid function tests, vitamin D levels, lipid panel, comprehens nathaniel metabolic panel, and complete blood count to rule out other etiologies .- Initiated Vivelle estrogen patch, to be changed twice a week, and progestero ne capsule to be taken at bedtime for symptom management and improved sleep quality.- Follow-up appointmen t scheduled for September 08 at 2:30 PM (patient's time) to review lab results and adjust treatment as necessary. Chief Complaint: Two primary symptoms: Mood changes, Weight gain Interested in discussing : Hormone replacemen t therapy (HRT), Non-hormon al medication s for perimenopa use, I would like to hear all the options Vitals: Height: 5'3 Weight: 170 Period Changes: Cycles are closer together, Heavier flow MRS - Symptom Severity: Hot Flashes and Night Sweats: Mild Moodiness, Anxiety and Depression : Severe Weight and Body Changes: Moderate Trouble Sleeping: Mild Period Problems: Moderate Painful Sex, Vaginal Dryness and Libido: Moderate Brain Fog and Memory: Mild Skin and Hair Changes: Moderate Joint Pain, Bone Loss and Fracture Risk: Patient is trying to get or is currently breastfeed ing: No Screener: JAIR-7 Score = 13 (Moderate Anxiety ) PHQ-8 Score = 10 (Moderate Depression ) Dementia/C ognitive Decline Concern: No tonsillect omy2 vaginal full term births Fatigue 06652430 R53.83 - Likely related to perimenopa usal disorder and hormonal fluctuatio ns.- Initiated hormone replacemen t therapy with Vivelle estrogen patch and progestero ne capsule to address underlying hormonal imbalance. - Ordered comprehens nathaniel metabolic panel and thyroid function tests to rule out other potential causes of fatigue.- Follow-up in one month to assess response to treatment and review lab results. As per overall signs/symp toms, assessing thyroid function. Obesity 099135560 E66.9 - Currently on tirzepatid e (Zepbound) for weight management .- Patient to continue current dosage and will increase to the next higher dose on Friday.- Follow-up appointmen t scheduled for September 08 to monitor weight and adjust medication as needed.- Advised patient to maintain insurance coverage as it is covering tirzepatid e. Insomnia 330285536 G47.0 0 - Likely secondary to perimenopa usal disorder.- Initiated progestero ne capsule at bedtime to improve sleep quality.- Follow-up in one month to assess response to treatment. Cognitive function finding 944065289 R41.9 - No specific treatment or evaluation discussed during this visit. Perimenopa usal disorder 485664785 N95.9 - Symptoms include irregular periods, vasomotor instabilit y, and increased cortisol levels.- Educated patient on the phases of menopause and the importance of estrogen replacemen t to manage symptoms and reduce cardiovasc ular and cancer risks.- Ordered labs including thyroid function tests, vitamin D levels, lipid panel, comprehens nathaniel metabolic panel, and complete blood count to rule out other etiologies .- Initiated Vivelle estrogen patch, to be changed twice a week, and progestero ne capsule to be taken at bedtime for symptom management and improved sleep quality.- Follow-up appointmen t scheduled for September 08 at 2:30 PM (patient's time) to review lab results and adjust treatment as necessary. Fibrocysti c disease of breast 01113067 N60.19 - Patient has a history of fibrocysti c breasts, which can be exacerbate d by hormone replacemen t therapy.- Educated patient on the potential impact of hormone replacemen t therapy on fibrocysti c breast changes and advised to monitor for any changes.- Advised to avoid caffeine and chocolate as they can increase symptoms. Patient en counter status [id number] Z12.31 - Last mammogram on 01/28/21 showed fibrocysti c breasts.- No new mammogram ordered during this visit. Long-term current use of postmenopausal hormone replacement therapy [id number] 14161 Z79.890 - Initiated Vivelle estrogen patch and progestero ne capsule for management of perimenopa usal symptoms.- Educated patient on the risks and benefits of hormone replacemen t therapy, including the potential for increased cardiovasc ular and cancer risks if used post-menop ause.- Follow-up appointmen t scheduled for September 08 to monitor response to treatment and adjust as necessary. [id number] Maria M Marino NP Main Office [address] [place] [address] 2024 14:41:31 09/09/2024 12:47:07 Menopausal symptom 35614317 N95.1 - Patient started on estrogen and progestero ne therapy.- Tolerating the medication well with no reported adverse effects.- Follow-up scheduled for October to reassess menopausal symptoms and hormone therapy efficacy.- Educated patient on the importance of adherence to therapy and monitoring for any side effects. Obesity 884924871 E66.9 - Patient is on Zepbound for weight management .- Next follow-up scheduled for September 29 at 4:15 PM to monitor weight and administer the next dose of Zepbound.- Discussed the importance of regular follow-ups to monitor progress and adjust treatment as necessary. [email or web address] [id number] higher dose scripted per pt rqst and tx to [facility] management then request same dose as higher dose is on back order Current weight is 159lbs, weight last month 164lbs request same dose filled this week not filling today fu made for WT Menopausal syndrome 1237 90137 N95.1 - Patient is on estrogen and progestero ne therapy.- Follow-up scheduled for October to reassess menopausal symptoms and hormone therapy efficacy.- Educated patient on the importance of adherence to therapy and monitoring for any side effects. Hyperlipidemia 20409358 E78.5 - Cholestero l levels are slightly elevated.- Recommende d fiber supplement to aid in weight loss and reduce cholestero l levels.- Advised rechecking cholestero l levels in January or March, either by me or primary care provider, to monitor and manage hyperlipid emia.- Educated patient on the risks of untreated hyperlipid emia, including stroke and atheroscle rosis. Vitamin D deficiency 347 15436 E55.9 - Current Vitamin D level is 40 ng/mL (normal range: 30-100 ng/mL).- Recommende d taking Vitamin D 5000 IU daily.- Advised getting indirect sunlight exposure when possible.- Educated patient on the importance of maintainin g adequate Vitamin D levels for overall health. [id number] Maria M Marino NP Main Office [address] [place] [address] 09/29/2024 16:04:02 09/30/2024 04:06:50 Menopausal symptom 00725461 N95.1 - Prescribed Prometrium 100 mg and estradiol for management of menopausal symptoms.- Updated prescripti on for Prometrium 100 mg and estradiol to a 90-day supply to align with insurance requiremen ts.- Patient educated on the importance of adherence to hormone therapy and potential side effects, including but not limited to nausea, headache, and breast tenderness .- Follow-up appointmen t scheduled for October to evaluate hormone therapy effectiven ess and symptom management . Obesity 912909192 E66.9 - Prescribed Zepbound 7.5 mg for weight management .- Updated prescripti on duration to 21 days with instructio ns to the pharmacy to not refill until 4 weeks from the date of fill.- Patient educated on the importance of adherence to the medication regimen and potential side effects, including but not limited to nausea, vomiting, and diarrhea.- Follow-up appointmen t scheduled for October 20 at 1:00 PM Central Time to monitor weight and evaluate the effectiven ess of Zepbound. Long-term current use of drug therapy 359174366 Z79.899 - Continued long-term use of Prometrium 100 mg, estradiol, and Zepbound 7.5 mg.- Updated prescripti ons to ensure alignment with insurance requiremen ts and patient adherence. - Patient understand s and agrees with the treatment plan and the importance of regular follow-up appointmen ts to monitor medication effectiven ess and manage any potential side effects. [id number] Maria M Marino NP Main Office [address] [place] [address] 10/26/2024 14:35:00 10/29/2024 04:21:56 Obesity 432032536 E66.9 - Patient has been on Zepbound 7.5 mg without any side effects.- Weight has decreased from 159 pounds (BMI 28.2) to 157 pounds (BMI 27.8) over the past month.- Hunger sensations are increasing .- Increased Zepbound to 10 mg once weekly subcutaneo usly.- Educated patient on the importance of continuing lifestyle modificati ons including diet and exercise.- Patient has no questions and understand s the treatment plan.- Follow-up scheduled for November 16, which will also include a menopausal follow-up. [id number] Maria M Marino NP Main Office [address] [place] [address] 11/25/2024 15:12:11 11/26/2024 04:06:17 Menopausal symptom 45808897 N95.1 - Ongoing symptoms managed with hormone therapy; increased transderma l estradiol from 0.0375 mg to 0.05 mg.- Continued oral progestero ne 100 mg with no dosage change.- Discussed benefits of increased estrogen for vasomotor relief and potential improvemen t of genitourin sade symptoms.- Risks of hormone therapy, such as endometria l hyperplasi a and cardiovasc ular events, reviewed.- Prescribed vaginal estrogen at 1 g nightly for one week, then 1 g twice weekly; may increase to 2 g if insufficie nt symptom relief. Obesity 518654604 E66.9 - Patient remains on Zepbound 10 mg subcutaneo us injection therapy; no significan t nausea reported.- Next follow-up appointmen t scheduled for December 22 at 2:15 PM to monitor weight changes and treatment efficacy. Reduced libido 8025181 R 68.82 - Explored adjunctive approaches , including vaginal estrogen and DHEA-conta ining arousal cream from a [facility] pharmacy.- Informed patient of optional referral to a [facility] provider for possible testostero ne therapy; discussed the increased monitoring requiremen ts and potential oncologic and virilizing risks.- Ordered comprehens nathaniel hormonal labs (including testostero ne levels) through [facility] for baseline assessment . Pt would like testostero ne to increase libido. She is aware at [facility] providers discretion . Estrogen patch increased added vaginal estradiol, pt declined arousal, further estrogen increase or script for Addyi, pt understand s risk of testostero ne. Abnormal f emale sexual function [id number] F52.9 - See reduced libido above for treatment/ management plan. History of malignant neoplasm [id number] Z85.9 Patient en counter status [id number] Z09 - Follow-up visit addressed ongoing care for Zepbound therapy; see obesity above for management details. Loss of hair [id number] L 65.9 - Recommende d over-the-c ounter ketoconazo le shampoo (lather in hair for 5 minutes, twice weekly).- Discussed option of a compounded topical serum (minoxidil , ketoconazo le, finasterid e, latanopros t) costing $69 per 30-day supply; patient to message if desired.- Advised continuati on of multivitam in or vitamin to support hair health. [id number] Maria M Marino NP Main Office [address] [place] [address] 12/22/2024 14:37:15 12/24/2024 04:15:52 Menopausal symptom [id number] N95.1 - Symptoms appear stable on current low-dose estrogen regimen.- See Perimenopa usal disorder below for treatment and follow-up plan. Obesity [id number] E66.9 Overweight [id number] E66 .3 - Mild improvemen t noted with a 3-pound weight reduction since last visit; BMI decreased from 27.3 to 26.7.- Refilled Zepbound 10 mg for a 21-day supply; prescripti on sent to [facility] on [address] Next follow-up scheduled on the at 2:15 p.m. Perimenopa usal disorder [id number] N95.9 - Continuing low-dose estrogen (0.5) initiated last month; labs do not warrant change in therapy.- Instructed to remain on this dose for approximat cory 3 months, then reassess symptom control and consider dose titration. - Advised to complete symptom questionna tano prior to the 3-month follow-up visit (projected for December to March) for comparison and possible therapy adjustment . [id number] Maria M Marino NP Main Office [address] [place] [address] 01/11/2025 16:33:50 01/14/2025 04:45:59 Obesity [id number] E66.9 - Patient lost 2 lb since the last follow-up. - Denies any adverse effects from current therapeuti c regimen.- Refilled weight management medication through March 01 at [facility] [address] (no specific dosage noted).- Instructed monthly follow-up for weight monitoring and safety checks.Zep bound at the 10 mg dosage continued per pt desire will attempt 90 days script insurance changing in March. Menopausal symptom [id number] N95.1 - Symptoms appear stable on current low-dose estrogen regimen.- See Perimenopa usal disorder below for treatment and follow-up plan.Overa sxs control, refill requested [id number] Maria M Marino NP Main Office [address] [place] [address] 02/15/2025 15:39:31 02/16/2025 04:30:33 Patient encounter status [id number] Z76.89 - Patient remains motivated to continue therapeuti c interventi ons for weight reduction; no new concerns or reported side effects.- Continuing Zepbound 10 as previously used.- Two new prescripti ons transmitte d: one fill dated today, the second earliest fill date on March 08.- Instructed patient to continue prior dietary and exercise measures.- Advised patient to send a weight update and note any adverse effects when filling the second prescripti on in March.- Scheduled follow-up on April 05. Overweight [id number] E66 .3 - See Encounter for weight management above for treatment/ management plan. Health Concerns Section Related Observation LastModified by Organization Detai ls LastModified Time None Recorded Concern Status LastModified by Organization Details LastModified Time None Recorded Advance Directives Directive None Recorded Payers Insurance Date Sequence Insurance Name Policy Number Policy Guevara Covered Member ID Guevara Member ID Guarantor Name 02/18/2025 1 [employer] (POS II) [id number] Zach Summers [id number] Herbert Summers Notes Date Note Type Note Provider Name and Address Organization Details Recorded Time 10/26/2024 text/html Patient is a 44 year old female presenting for a follow-up on weight management and menopausal symptoms. Weight Management:- Patient has been on Zepbound 7.5 milligrams without any reported side effects.- She has experienced some weight loss, from a weight of 159 pounds and a BMI of 28.2 last month, to a current weight of 157 pounds and a BMI of 27.8.- Patient reports that her hunger sensations are beginning to increase and expresses interest in increasing the dosage of Zepbound.- She does not have any questions regarding her weight management and is scheduled for a follow-up on November 16. Menopausal Symptoms:- Patient is also scheduled for a menopausal follow-up on November 16.- She reports that she does not need any refills for hormone replacement therapy at this time. Current Meds:- Zepbound 7.5 milligrams once weekly subcutaneous Virtual Visit AttestationModality: VideoProvider Location: Home Patient Location: Home Patient [place]: [place] 7.[place] mg/0.5 mL subcutaneous pen injector [id number] [place] [address] [place], [address], [facility] 10/26/2024 18:11:34 11/25/2024 text/html The patient is a 44-year-old female with a history of menopausal symptoms and weight management presenting for follow-up. Menopausal Symptoms- Currently on estradiol 0.0375 mg and progesterone 100 mg.- Reports decreased libido.- Interested in exploring testosterone therapy to boost libido. Weight Management- Currently on Zepbound 10 mg for weight management.- Denies experiencing nausea from the injection.- Current weight: Not specified in the transcript. Current Meds:estradioL 0.0375 mg/24 hr semiweekly transdermal patchAPPLY 1 PATCH TWICE A WEEKondansetron 4 mg disintegrating tabletPlace 1 tablet every 6-8 hours by translingual route as directed for 10 days.Prometrium 100 mg capsuleTake 1 capsule every day by oral route at bedtime for 90 days. Zepbound 10 mg/0.5 mL subcutaneous pen injectorInject 10 mg every week by subcutaneous route as directed for 21 days. Virtual Visit AttestationModality: VideoProvider Location: Home Patient Location: Home Patient State: [place] [address] [place], [address], [facility] [employer] 11/25/2024 16:05:16 12/22/2024 text/html The patient is a 44-year-old female with a history of perimenopause and overweight presenting for follow-up on weight management and perimenopausal symptoms. Weight Management- Currently on Zepbound 10 mg, initiated last month.- Reports a weight loss of 3 lbs since the last visit; BMI decreased from 27.3 to 26.7.- Denies any side effects from Zepbound.- Goal weight is 135-145 lbs. Perimenopausal Symptoms- Currently on estrogen 0.5 mg, started last month.- No new concerns or issues reported today. Current Medications and Supplements- Zepbound 10 mg- Estrogen 0.5 mgProgesterone 100mg Virtual Visit AttestationModality: VideoProvider Location: Home Patient Location: Home Patient State: [place] [address] [place], [address], [facility] 12/22/2024 15:28:45 01/11/2025 text/html The patient is a 44-year-old female presenting for a weight management follow-up.No reported side effects to treatment, happy with plan, no health condition changes Weight Management- Patient reports no side effects, including nausea, from her current weight management medication.- Current weight is 149 lbs, down from 151 lbs last month.- Patient is considering whether to stay on her current dose or move up. Virtual Visit AttestationModality: VideoProvider Location: Home Patient Location: Home Patient State: [place] [address] [place], [address], [facility] 01/11/2025 17:44:30 02/15/2025 text/html The patient is a 44-year-old female presenting for a follow-up visit regarding weight management.Pt reports no changes to health condition and no side effects to treatment. Weight Management- Currently on Zepbound 10 mg for weight management.- Current weight is 149 lbs, with a BMI of 26.6, up from 26.4 last month.- Target weight is 135 lbs.- No reported side effects or concerns with the current medication. Virtual Visit AttestationModality: VideoProvider Location: Home Patient Location: Home Patient [place]: [place] [address] [place], [address], [facility] 02/15/2025 17:56:32 OBGyn Episode No OBEpisode recorded.
--- OUTSIDE RECORDS SUMMARY | 2025-03-15 01:06 | XMS_ITS | Clinical Summary ---
Author Organization [facility] Address [address] [place] [address] [place] [address] Care Team Providers Care Pyrometer Mechanic Name Role Phone Jose Luis Hurtado DO Primary Care Provider Source Comments [facility],non-owned Affiliates and Associated Physician Practices is amultiple site organization consisting of ambulatory clinics and hospital sitesin [place], [place], [place] and [place]. This disclosure is being madepursuant to the Care Everywhere program and may not contain all information available regarding this patient. Last updated 18.[facility] Allergies Active Allergy Reactions Criticality Noted Date Comments Penicillins Unknown 10/27/2018 Medications * Be aware that medications may not be up to date on this document. Alwaysverify current medications with the patient. 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 Gender Identity Not on file Sexual Orientation Not on file Last Filed Vital Signs Vital Sign Reading Time Taken Comments Blood Pressure 104/70 10/27/2018 2:25 PM COILER OPERATOR Pulse 82 10/27/2018 2:25 PM COILER OPERATOR Temperature 37.2 C (98.9 F) 10/27/2018 2:25 PM COILER OPERATOR Respiratory Rate - - Oxygen Saturation 97% 10/27/2018 2:25 PM COILER OPERATOR Inhaled Oxygen Concentration - - Weight 74.8 kg (165 lb) 10/27/2018 2:25 PM COILER OPERATOR Height 162.6 cm (5' 4) 10/27/2018 2:25 PM COILER OPERATOR Body Mass Index 28.32 10/27/2018 2:25 PM COILER OPERATOR Plan of Treatment Health Maintenance Due Date Last Done Comments LIPID TESTING 1980 MAMMOGRAM 1980 HIV SCREENING 1995 HEPATITIS C SCREENING 09/04/1998 DTAP/TDAP/TD VACCINES (1 - Tdap) 1999 HEPATITIS B VACCINE (1 of 3 - 19+ 3-dose series) 1999 HPV VACCINE (1 - 3-dose SCDM series) 2007 COVID-19 VACCINE (1 - 2023-2 5 season) 2024 DEPRESSION SCREENING 09/01/2024 INFLUENZA VACCINE (#1) 2025 ZOSTER VACCINE (1 of 2) 2030 HIB VACCINE Aged Out No longer eligi ble based on patient's age to complete this topic MENINGOCOCCAL (Group B) VACC INE SHARED DECISION-MAKING Aged Out No longer eligibl e based on patient's age to complete this topic MENINGOCOCCAL GROUPS A/C/Y/W VACCINE Aged Out No longer eligible b ased on patient's age to complete this topic PNEUMOCOCCAL VACCINE Aged Out No long er eligible based on patient's age to [place] [address] [facility] Member Subscriber Plan / Payer (Ef fective for All Dates) Name:Jones Summersantonella Silvestre Relation to Subscriber:Spouse Name:JULIRANJEET Subscriber ID:Not on file Date of :1978 (Home) Address: [address] [place] [address] Payer ID:[id number] (NAIC) Type:O Address: [address] [place] [address] Care Teams Pyrometer Mechanic Relationship Specialty Start Date End Date Jose Luis Hurtado DO [address] [place] [address] PCP - General 02/01/22
[2025-03-15] MEDS: LACTATED RINGERS 1,000 ML 30 ML IV CONT ×2 (06:30→10:16)
--- NOTE | 2025-03-15 06:54 | P.PNAN_ITS ---
Anes - Initial Pre Proc Eval Procedure: Operation Date: 03/15/25 07:30 Proposed Procedures p Bilateral Breast Augmentation - Kit Terry MD s Bilateral Breast Mastopexy with Galaflex - Kit Terry MD Date/Time: 03/15/25 06:54 Surgeon: Kit Terry MD Pre Op Diagnosis: Micromastia, Breast Ptosis Patient Data Age: 44 Gender: F Height: 1.6 m Weight: 63.2 kg Last Vital Signs Temp 36.6 C 03/15/25 06:05 Pulse 66 03/15/25 06:05 Resp 18 03/15/25 06:05 BP 112/55 L 03/15/25 06:05 Pulse Ox 100 03/15/25 06:05 O2 Del Method Room Air 03/15/25 06:05 Allergies Allergy/AdvReac Type Severity Reaction Status Date / Time Penicillins AdvReac Mild Other Verified 03/15/25 06:08 Home Medications ?Medication ?Instructions ?Recorded ?Confirmed ?Type estradiol 0.05 mg/24 hr semiweekly 1 patch topical .bi weekly 03/03/25 03/15/25 History transdermal patch progesterone micronized 100 mg 100 mg PO HS 03/03/25 03/15/25 History capsule tirzepatide (weight loss) 10 10 mg subcut WEEKLY 03/03/25 03/15/25 History mg/0.5 mL subcutaneous pen injector (Zepbound) Laboratory Tests 03/15/25 06:20 Cotinine Negative Patient hx anesthesia problems: none Family hx anesthesia problems: none Results Review: All pre-operative results and documents have been reviewed as part of the pre- operative evaluation. [facility] Past Medical History Medical History Daytime hypersomnolence Elevated CA-125 04/13/2020 report noted referred for gynecology and pelvic ultrasound phone call patient did see photo finish photographer Fatigue Surgical History Surgical History History of tonsillectomy Family History Family History Mother COPD (chronic obstructive pulmonary disease) Social History Social History Smoking status: Never smoker Alcohol intake: current Substance use: never Living arrangements: with family Spiritual care concerns: No Anes - Eval Final PreProcedure Day of Procedure 03/15/25 06:54 Patient weight: normal Heart: regular rate and rhythm Lungs: clear to auscultation Airway: Mallampati scale class II Neurological: alert and oriented Last oral intake: >/= 8 hours ASA classification: I Emergent: no Anesthetic plan: proceed Anesthesia type and monitoring: general LMA and standard monitoring Results Review: All pre-operative results and documents have been reviewed as part of the pre- operative evaluation. Informed Consent: The patient's anesthetic plan and its attendant risks and benefits were discussed with the patient/family/POA. Questions were solicited and answers provided to the satisfaction of the patient/family/POA.
--- NOTE | 2025-03-15 06:55 | WPDHPUPDATE1 ---
History and Physical Update Update Date/Time: 03/15/25 06:55 History and Physical has been reviewed, including an updated exam of the patient. There are NO changes in the patient's condition. Risks, benefits, and alternatives have been discussed and questions answered. Patient agrees to proceed with procedure.
--- NOTE | 2025-03-15 06:55 | W.PM.PROC2 ---
Procedure Note - Detailed Date of Procedure 03/15/25 Pre-op Diagnosis Micromastia, Breast Ptosis Post-op Diagnosis Same Procedure Performed Bilateral augmentation mastopexy with Galaflex Surgeon Kit Terry MD Anesthesia General Findings Inverted T Superior pedicle Bilateral Desire SoftTouch 405cc Right: REF# [id number] SN [id number] Left: REF# [id number] SN [id number] Description of Procedure She is here today for bilateral breast augmentation mastopexy. Previously and again today the risks, benefits, alternatives were discussed in extensive detail. I wanted her to be very realistic about the risks involved as well as expectations. We discussed aftercare and what to monitor for. Made sure answered all of her questions to her satisfaction today and consent was obtained. Marked in the preoperative holding area with their verification. The patient was taken to the operating room placed supine on the operating table. Anesthesia was provided by anesthesiology. A surgical time-out was taken. She was prepped and draped in a standard sterile fashion. Tumescent was utilized laterally to provide field block Tegaderm nipple Moane were placed. A 15 blade used to make an incision just superior to the inframammary fold leaving a cusp of de-epithelized tissue at the t junction. Dissection was continued until the chest wall as identified. I incised the pectoralis major along its inferior border and completely released the inferior border leaving the medial border intact. I created a subpectoral pocket in the appropriate dimensions based on our preoperative planning for the implant. I then copiously irrigated with saline solution and verified a strict hemostasis. Next the use a triple antibiotic and Betadine containing solution to irrigate the pocket. I washed my gloves with the triple antibiotic and Betadine solution. We washed the implant immediately upon opening it with this solution and only opened it when we needed it. I used implant funnel and no-touch technique. The implant was introduced into the pocket using the funnel. Having verified positioning of the implant this was closed using 2-0 PDS. I tailor tacked the breast into position. Placed her in a sitting position. Verified the nipple-areolar location based on preoperative planning as well as intraoperative observations and measurements in full agreement. Suction lipectomy was completed laterally with a 4mm alexy cannula. This was based on preoperative planning, intraoperative observation, and rolling pinch which was in full agreement. Minimal volume required. She was placed supine. I de-epithelialized the pedicle. I then removed the inferior central portion of the breast need making sure the implant was well protected. I elevated medial and lateral tissue flaps as well for planned closure. Galaflex was soaking on the back table in a betadine solution. Trimmed and sutured into place with 2-0 Vicryl. I closed along the IMF with 2-0 Stratafix. Along the vertical with 2-0 PDS. I closed around the areola with 3-0 strata fix. 3-0 Monocryl along the vertical. 3-0 Stratafix along the IMF. I finally closed everything with running subcuticular 4-0 Monocryl and tissue glue. Brijjit's placed along the vertical incision. Fluffs and surgical bra were placed. Estimated Blood Loss 30 Drains No Packing No Pathology None sent Complications No immediate complications Condition Stable Disposition PACU
[2025-03-15] MEDS: TRANEXAMIC ACID 1,000MG/ISO100 1,000 MG/100 ML BAG 200 MG IVPB (07:05)
[2025-03-15] MEDS: SCOPOLAMINE 1 MG PATCH 1 PATCH TRANSDERM (07:08)
[2025-03-15 07:16] LABS: BEDSIDEPREGUCG Negative (Negative)
[2025-03-15] MEDS: LACTATED RINGERS IRRIG 1,000 ML, LIDOCAINE 1% LOCAL INJ 50 ML, EPINEPHrine HCL INJ 1 MG... INFILTRATE (07:28)
[2025-03-15] MEDS: NACL 0.9% IRRIG POUR BOTTLE 900 ML, GENTAMICIN SULFATE INJ 160 MG, ceFAZolin 2 GM, POVI... IRRIGATION (07:28)
[2025-03-15] MEDS: ceFAZolin 2 GM in SODIUM CHLORIDE 0.9% IV 50 ML 100 ML IVPB (07:40)
[2025-03-15] MEDS: fentaNYL CITRATE INJ (*CRX) 100 MCG/2 ML VIAL 25 MCG IV PUSH ×3 (10:21→10:51)
[2025-03-15] MEDS: ONDANSETRON INJ 4 MG/2 ML VIAL IV PUSH (10:41)
[2025-03-15] MEDS: oxyCODONE HCL (*CRX) 5 MG TAB IR PO (11:20)
== END 2025-03-15 11:51 | disposition home or self-care (01) ==
PROVIDERS: Visit Provider Surgery Plastic and Reconstructive Surgery
PROC: (CPT 19325; principal; 2025-03-15 07:30)
PROC: (CPT 19316; 2025-03-15 07:30)
DX: Z41.1 Encounter for cosmetic surgery (principal); N64.82 Hypoplasia of breast; N64.81 Ptosis of breast
CPT/HCPCS: 19325; 19316; 15777 ×2; 80307; J0690; A9270; J0166; J1100; J1580; J2003; J2004; J2250; J2371; J2405; J2704; J3010; J7120